=== PATIENT | female | born 1960 | race Two or more races ===

== ENCOUNTER 2024-04-22 11:16 | Inpatient (IN) | payer BC, OTHER ==
[2024-04-22] VITALS (8 sets, daily range): BP systolic 98–156; BP diastolic 62–99; PULSE 65–122; RESP 17–19; TEMP 97.9–98.7; O2SAT 2–100
[~2024-04-22] VITALS: Ht 167.6 cm; Wt 164.3 kg
[~2024-04-22 11:16] MED LIST: ALBU108A5 IN; CLON0.1T PO; HYDR25TA4 PO
[2024-04-22] MEDS: FUROSEMIDE 40 MG/4 ML VIAL IV ONE (11:45)
[2024-04-22 12:02] LABS: Basophils # (auto) 0.1 10 ^3/uL (0-0.2); Basophils % (auto) 0.6 % (0.0-2.0); Eosinophils # (auto) 0.1 10 ^3/uL (0-0.8); Eosinophils % (auto) 0.6 % (0.0-7.0); Hematocrit 48.4 % (36.0-46.0); Hemoglobin 16.3 g/dL (12.2-16.2); Lymphocytes # (auto) 1.4 10 ^3/uL (0.4-5.4); Lymphocytes % (auto) 16.9 % (10.0-50.0); Mean Corpuscular Hemoglobin 31.2 pg (28.0-32.0); Mean Corpuscular Hgb Conc. 33.7 g/dL (32.0-36.0); Mean Corpuscular Volume 92.6 fL (80.0-100.0); Monocytes # (auto) 0.7 10 ^3/uL (0-1.3); Monocytes % (auto) 8.2 % (0.0-12.0); Neutrophils # (auto) 6.2 10 ^3/uL (1.6-8.6); Neutrophils % (auto) 73.7 % (37.0-80.0); Platelet Count (auto) 202 10^3/uL (140-450); Red Blood Cells 5.22 10^6/uL (4.0-5.20); Red Cell Distribution Width 14.8 % (11.8-14.3); White Blood Cell 8.4 10^3/uL (4.4-10.8)
[2024-04-22 12:03] LABS: Chloride 98 mmol/L (98-107); Potassium 3.8 mmol/L (3.5-5.1); Sodium 132 mmol/L (136-145)
[2024-04-22 12:04] LABS: Anion Gap 13 (5-15); Carbon Dioxide 21 mmol/L (20-31)
[2024-04-22 12:05] LABS: Calcium 10.1 mg/dL (8.7-10.4)
[2024-04-22 12:10] LABS: BUN/Creatinine Ratio 10.4 (10.0-20.0); Blood Urea Nitrogen 15 mg/dL (9-23)
[2024-04-22 12:13] LABS: Glucose 474 mg/dL (74-106)
[2024-04-22 16:30] LABS: COVID19 ANTIGEN SOFIA FIA NEGATIVE (NEGATIVE)
[2024-04-22 16:31] LABS: Rapid Influenza A Negative (Negative); Rapid Influenza B Negative (Negative)
[2024-04-22] MEDS ORDERED: LISI-275 PO (16:44)
[2024-04-22] MEDS ORDERED: SIMV20TA20 PO (16:44)
[2024-04-22] MEDS ORDERED: METOPROLOL TARTRATE 25 MG TAB PO ONE (16:45)
[2024-04-22] MEDS ORDERED: ACETAMINOPHEN 325 MG TAB PO PRN (16:45)
[2024-04-22] MEDS ORDERED: MORPHINE SULFATE INJ 2 MG/ml SYRG IV PRN (16:45)
[2024-04-22] MEDS: SODIUM CHLORIDE 0.9% 1,000 ML IV SCH (16:45)
[2024-04-22] MEDS ORDERED: DEXTROSE (50%) 50ML SYRG IV PRN (16:45)
[2024-04-22] MEDS ORDERED: IPRATROPIUM BROM 0.5 MG/2.5ML INH SOL NEB PRN (16:45)
[2024-04-22] MEDS ORDERED: ALBUTEROL SULF 2.5 MG/0.5ML(0.5%) NEB SOLN NEB PRN (16:45)
[2024-04-22] MEDS ORDERED: HYDROcodone-ACET 5/325MG TAB PO PRN (16:45)
[2024-04-22 17:07] LABS: Urine Bacteria FEW /hpf (None Seen); Urine Blood Negative /uL (Negative); Urine Clarity Clear (Clear); Urine Color Light-Yellow (Yellow); Urine Protein, UAD Negative (Negative); Urine Specific Gravity 1.014 (1.001-1.035); Urine Urobilinogen Normal (Negative); Urine WBC 3 /hpf (0 - 5)
[2024-04-22 17:13] LABS: Triglycerides 230 mg/dL (< 150)
[2024-04-22 17:14] LABS: LDL Cholesterol 73 mg/dL (< 100)
[2024-04-22 17:15] LABS: Cholesterol 147 mg/dL (< 200); HDL Cholesterol 52 mg/dL (40-59)
[2024-04-22 17:19] LABS: Amphetamine Screen, Urine Neg (NEGATIVE); Barbiturate Scree,Urine Neg (NEGATIVE); Benzodiazephine Screen, Urine Neg (NEGATIVE); Cannabinoid Screen, Urine Neg (NEGATIVE); Cocaine Screen, Urine Neg (NEGATIVE); Opiate Scree,Urine Neg (NEGATIVE); Phencyclidine Screen, Urine Neg (NEGATIVE)
[2024-04-22] MEDS: amLODIPine BESYLATE 5 MG TAB PO ONE (17:45)
[2024-04-22] MEDS: ACCU-CHEK COMFORT CURVE STRIP VI SCH (17:54)
[2024-04-22] MEDS: IPRATROPIUM BROM 0.5 MG/2.5ML INH SOL NEB SCH (18:00)
[2024-04-22] MEDS: InsuLIN REG 1unit/0.01ml Soln (100units/ml) SC SCH (18:01)
[2024-04-22] MEDS: MAGNESIUM SULFATE 1GM/100ML 100 ML IV ONE (18:08)
[2024-04-22 18:26] LABS: Base Excess 0.7 mmol/L (-2.0-3.0)
[2024-04-22] MEDS: ALBUTEROL SULF 2.5 MG/0.5ML(0.5%) NEB SOLN NEB SCH (18:32)
[2024-04-22] MEDS ORDERED: ASPI81CH59 PO (20:31)
[2024-04-22] MEDS ORDERED: BACL20TA PO (20:31)
[2024-04-22] MEDS ORDERED: ATEN100T PO (20:31)
[2024-04-22] MEDS ORDERED: CHOL20007 PO (20:31)
[2024-04-22] MEDS ORDERED: INSU1.2I SC (20:32)
[2024-04-22] MEDS: ATORVASTATIN 20 MG TAB PO SCH (22:32)
[2024-04-22] MEDS: METOPROLOL TARTRATE 25 MG TAB PO SCH (22:44)
[2024-04-22] MEDS: ENOXAPARIN SOD 150 MG/1 ML SYRINGE SC SCH (22:47)
[2024-04-22] MEDS: INSULIN LANTUS (GLARGINE) 1 /0.01ml (100units/ml) SC SCH (23:00)
[2024-04-23] VITALS (16 sets, daily range): BP systolic 101–118; BP diastolic 42–76; PULSE 65–162; RESP 17–19; TEMP 97.8–98.4; O2SAT 93–100
[2024-04-23 07:20] LABS: Basophils # (auto) 0 10 ^3/uL (0-0.2); Basophils % (auto) 0.6 % (0.0-2.0); Eosinophils # (auto) 0.1 10 ^3/uL (0-0.8); Eosinophils % (auto) 1.1 % (0.0-7.0); Hematocrit 45.8 % (36.0-46.0); Hemoglobin 15.7 g/dL (12.2-16.2); Lymphocytes # (auto) 2.4 10 ^3/uL (0.4-5.4); Lymphocytes % (auto) 29.7 % (10.0-50.0); Mean Corpuscular Hemoglobin 31.8 pg (28.0-32.0); Mean Corpuscular Hgb Conc. 34.3 g/dL (32.0-36.0); Mean Corpuscular Volume 92.7 fL (80.0-100.0); Monocytes # (auto) 0.9 10 ^3/uL (0-1.3); Monocytes % (auto) 10.9 % (0.0-12.0); Neutrophils # (auto) 4.7 10 ^3/uL (1.6-8.6); Neutrophils % (auto) 57.7 % (37.0-80.0); Nucleated Red Blood Cells % 0.1 %; Platelet Count (auto) 218 10^3/uL (140-450); Red Blood Cells 4.94 10^6/uL (4.0-5.20); Red Cell Distribution Width 14.6 % (11.8-14.3); White Blood Cell 8.2 10^3/uL (4.4-10.8)
[2024-04-23 07:30] LABS: Alanine Aminotransferase 34 U/L (7-40); Alkaline Phosphatase 64 U/L (46-116); Anion Gap 12 (5-15); Carbon Dioxide 25 mmol/L (20-31); Chloride 99 mmol/L (98-107); Glucose 329 mg/dL (74-106); Potassium 3.3 mmol/L (3.5-5.1); Sodium 136 mmol/L (136-145)
[2024-04-23 07:31] LABS: Aspartate Aminotransferase 25 U/L (13-40); BUN/Creatinine Ratio 11.4 (10.0-20.0); Blood Urea Nitrogen 16 mg/dL (9-23)
[2024-04-23 07:32] LABS: Albumin 4.3 g/dL (3.2-4.8)
[2024-04-23 07:33] LABS: Bilirubin, Total 0.5 mg/dL (0.2-1.0); Total Protein 7.1 g/dL (5.7-8.2)
[2024-04-23] MEDS: amLODIPine BESYLATE 5 MG TAB PO SCH (08:25)
[2024-04-23] MEDS ORDERED: DEXTROSE (50%) 50ML SYRG IV PRN (08:45)
[2024-04-23] MEDS ORDERED: POTASSIUM CHL 20MEQ/100ML 100 ML IV SCH (09:00)
[2024-04-23] MEDS: METOPROLOL TARTRATE 1MG/1ML-5ML VIAL IV ONE (10:38)
[2024-04-23] MEDS: LEVALBUTEROL HCL 1.25 MG/3 ML NEB NEB SCH (12:00)
[2024-04-23] MEDS: VERAPAMIL HCL 120 mg ER tab PO ONE (12:06)
[2024-04-23] MEDS: ACCU-CHEK COMFORT CURVE STRIP VI SCH (12:07)
[2024-04-23] MEDS: MAGNESIUM SULFATE 1GM/100ML 100 ML IV ONE (12:07)
[2024-04-23] MEDS: InsuLIN REG 1unit/0.01ml Soln (100units/ml) SC SCH (13:41)
[2024-04-23] MEDS ORDERED: LEVALBUTEROL HCL 1.25 MG/3 ML NEB NEB SCH (14:00)
[2024-04-23] MEDS: POTASSIUM CHLORIDE 40 MEQ, LIDOCAINE 1% (LOCAL ANESTH.) 4 ML in SODIUM CHL 0.9% 250 ML IV ONE (14:23)
[2024-04-23] MEDS: InsuLIN REG 1unit/0.01ml Soln (100units/ml) SC ONE (14:55)
[2024-04-23] MEDS: ATORVASTATIN 20 MG TAB PO SCH (21:12)
[2024-04-23] MEDS ORDERED: ATORVASTATIN 20 MG TAB PO SCH (22:00)
[2024-04-24] VITALS (10 sets, daily range): BP systolic 100–128; BP diastolic 50–76; PULSE 105–155; RESP 16–22; TEMP 98–99; O2SAT 94–99
[2024-04-24 06:35] LABS: Basophils # (auto) 0 10 ^3/uL (0-0.2); Basophils % (auto) 0.6 % (0.0-2.0); Eosinophils # (auto) 0.2 10 ^3/uL (0-0.8); Eosinophils % (auto) 2.3 % (0.0-7.0); Hematocrit 48.2 % (36.0-46.0); Hemoglobin 16.5 g/dL (12.2-16.2); Lymphocytes # (auto) 2.3 10 ^3/uL (0.4-5.4); Lymphocytes % (auto) 31.2 % (10.0-50.0); Mean Corpuscular Hemoglobin 31.8 pg (28.0-32.0); Mean Corpuscular Hgb Conc. 34.4 g/dL (32.0-36.0); Mean Corpuscular Volume 92.6 fL (80.0-100.0); Monocytes # (auto) 0.6 10 ^3/uL (0-1.3); Monocytes % (auto) 8.2 % (0.0-12.0); Neutrophils # (auto) 4.2 10 ^3/uL (1.6-8.6); Neutrophils % (auto) 57.7 % (37.0-80.0); Nucleated Red Blood Cells % 0.1 %; Platelet Count (auto) 217 10^3/uL (140-450); Red Cell Distribution Width 14.5 % (11.8-14.3); White Blood Cell 7.3 10^3/uL (4.4-10.8)
[2024-04-24] MEDS: AMIODARONE BOLUS KIT 100 ML IV ONE ×2 (06:40→06:41)
[2024-04-24] MEDS: AMIODARONE 450mg/250ml AE 250 ML IV ONE (06:42)
[2024-04-24 06:43] LABS: Alanine Aminotransferase 34 U/L (7-40); Albumin 4.6 g/dL (3.2-4.8); Alkaline Phosphatase 65 U/L (46-116); Anion Gap 11 (5-15); Aspartate Aminotransferase 26 U/L (13-40); BUN/Creatinine Ratio 12.7 (10.0-20.0); Blood Urea Nitrogen 16 mg/dL (9-23); Calcium 10.5 mg/dL (8.7-10.4); Carbon Dioxide 24 mmol/L (20-31); Chloride 102 mmol/L (98-107); Glucose 199 mg/dL (74-106); Magnesium 2.3 mg/dL (1.6-2.6); Potassium 3.6 mmol/L (3.5-5.1); Sodium 137 mmol/L (136-145)
[2024-04-24 06:44] LABS: Bilirubin, Total 0.7 mg/dL (0.2-1.0); Total Protein 7.4 g/dL (5.7-8.2)
[2024-04-24] MEDS: AMIODARONE 450mg/250ml AE 250 ML IV SCH (06:58)
[2024-04-24] MEDS: METOPROLOL TARTRATE 1MG/1ML-5ML VIAL IV ONE ×3 (07:30→18:38)
[2024-04-24] MEDS ORDERED: POTASSIUM CHL 20 Meq TABLET PO ONE (07:30)
[2024-04-24] MEDS: POTASSIUM CHL 20 Meq TABLET PO ONE (08:03)
[2024-04-24] MEDS: METOPROLOL TARTRATE 25 MG TAB PO SCH (09:27)
[2024-04-24] MEDS: FUROSEMIDE 40 MG/4 ML VIAL IV ONE (09:28)
[2024-04-24] MEDS ORDERED: VERAPAMIL HCL 120 mg ER tab PO SCH (10:00)
[2024-04-24] MEDS: DIGOXIN (250MCG/ML) 2 ML AMPULE IV ONE (11:10)
[2024-04-24] MEDS: FUROSEMIDE INJECTION 100 MG in D5W 5% 100 ML IV SCH (13:30)
[2024-04-24 14:19] LABS: Protein, Urine < 6.0 mg/dL (1-14)
[2024-04-24 14:21] LABS: Creatinine, Urine 25.71 mg/dL (30.0-125.0)
[2024-04-24] MEDS ORDERED: FUROSEMIDE 40 MG/4 ML VIAL IV SCH (18:00)
[2024-04-24 20:02] LABS: Potassium 3.8 mmol/L (3.5-5.1)
[2024-04-24] MEDS: METOPROLOL SUCCINATE XL 50 MG TAB PO SCH (20:56)
[2024-04-25] VITALS (14 sets, daily range): BP systolic 103–119; BP diastolic 44–88; PULSE 74–169; RESP 16–20; TEMP 97.8–98.9; O2SAT 93–98
[2024-04-25 06:23] LABS: Basophils # (auto) 0 10 ^3/uL (0-0.2); Basophils % (auto) 0.7 % (0.0-2.0); Eosinophils # (auto) 0.2 10 ^3/uL (0-0.8); Eosinophils % (auto) 2.1 % (0.0-7.0); Hematocrit 45.9 % (36.0-46.0); Hemoglobin 15.9 g/dL (12.2-16.2); Lymphocytes # (auto) 2.1 10 ^3/uL (0.4-5.4); Lymphocytes % (auto) 28.5 % (10.0-50.0); Mean Corpuscular Hemoglobin 31.7 pg (28.0-32.0); Mean Corpuscular Hgb Conc. 34.5 g/dL (32.0-36.0); Mean Corpuscular Volume 91.7 fL (80.0-100.0); Monocytes # (auto) 0.6 10 ^3/uL (0-1.3); Monocytes % (auto) 8.1 % (0.0-12.0); Neutrophils # (auto) 4.4 10 ^3/uL (1.6-8.6); Neutrophils % (auto) 60.6 % (37.0-80.0); Nucleated Red Blood Cells % 0.1 %; Platelet Count (auto) 198 10^3/uL (140-450); Red Blood Cells 5.01 10^6/uL (4.0-5.20); Red Cell Distribution Width 14.5 % (11.8-14.3); White Blood Cell 7.3 10^3/uL (4.4-10.8)
[2024-04-25 06:30] LABS: Alanine Aminotransferase 28 U/L (7-40); Albumin 4.1 g/dL (3.2-4.8); Alkaline Phosphatase 58 U/L (46-116); Anion Gap 10 (5-15); Aspartate Aminotransferase 22 U/L (13-40); BUN/Creatinine Ratio 10.8 (10.0-20.0); Bilirubin, Total 0.7 mg/dL (0.2-1.0); Blood Urea Nitrogen 14 mg/dL (9-23); Calcium 9.9 mg/dL (8.7-10.4); Carbon Dioxide 25 mmol/L (20-31); Chloride 103 mmol/L (98-107); Glucose 193 mg/dL (74-106); Magnesium 1.9 mg/dL (1.6-2.6); Potassium 3.3 mmol/L (3.5-5.1); Sodium 138 mmol/L (136-145); Total Protein 6.7 g/dL (5.7-8.2)
[2024-04-25] MEDS: DIGOXIN 0.125 MG TAB PO SCH (08:12)
[2024-04-25] MEDS: POTASSIUM CHL 20MEQ/100ML 100 ML IV SCH (08:13)
[2024-04-25] MEDS: POTASSIUM EFFERVESENT TAB 25 MEQ PO ONE (11:39)
[2024-04-25] MEDS: MAGNESIUM OXIDE 400 MG TAB PO ONE (11:39)
[2024-04-25] MEDS: METOPROLOL TARTRATE 1MG/1ML-5ML VIAL IV ONE (11:40)
[2024-04-25] MEDS: METOPROLOL SUCCINATE XL 50 MG TAB PO ONE (15:27)
[2024-04-25] MEDS: FUROSEMIDE INJECTION 100 MG in D5W 5% 100 ML IV SCH (15:29)
[2024-04-25] MEDS: AMIODARONE HCL 200 MG TAB PO SCH (18:51)
[2024-04-25] MEDS: METOPROLOL SUCCINATE XL 50 MG TAB PO SCH (21:26)
[2024-04-26] VITALS (16 sets, daily range): BP systolic 106–138; BP diastolic 57–86; PULSE 76–136; RESP 18–24; TEMP 97.8–98.1; O2SAT 94–98
[2024-04-26 06:10] LABS: Basophils # (auto) 0.1 10 ^3/uL (0-0.2); Basophils % (auto) 0.6 % (0.0-2.0); Eosinophils # (auto) 0.2 10 ^3/uL (0-0.8); Eosinophils % (auto) 1.8 % (0.0-7.0); Hematocrit 44.6 % (36.0-46.0); Hemoglobin 15.5 g/dL (12.2-16.2); Lymphocytes # (auto) 2.4 10 ^3/uL (0.4-5.4); Lymphocytes % (auto) 25.6 % (10.0-50.0); Mean Corpuscular Hemoglobin 32.1 pg (28.0-32.0); Mean Corpuscular Hgb Conc. 34.8 g/dL (32.0-36.0); Mean Corpuscular Volume 92.3 fL (80.0-100.0); Monocytes # (auto) 0.8 10 ^3/uL (0-1.3); Monocytes % (auto) 8.6 % (0.0-12.0); Neutrophils # (auto) 5.9 10 ^3/uL (1.6-8.6); Neutrophils % (auto) 63.4 % (37.0-80.0); Nucleated Red Blood Cells % 0.1 %; Platelet Count (auto) 206 10^3/uL (140-450); Red Blood Cells 4.83 10^6/uL (4.0-5.20); Red Cell Distribution Width 14.5 % (11.8-14.3); White Blood Cell 9.4 10^3/uL (4.4-10.8)
[2024-04-26 06:27] LABS: Alanine Aminotransferase 27 U/L (7-40); Albumin 4.3 g/dL (3.2-4.8); Alkaline Phosphatase 55 U/L (46-116); Anion Gap 11 (5-15); Aspartate Aminotransferase 19 U/L (13-40); BUN/Creatinine Ratio 9.9 (10.0-20.0); Bilirubin, Total 0.8 mg/dL (0.2-1.0); Blood Urea Nitrogen 13 mg/dL (9-23); Calcium 9.9 mg/dL (8.7-10.4); Carbon Dioxide 25 mmol/L (20-31); Chloride 102 mmol/L (98-107); Glucose 197 mg/dL (74-106); Potassium 3.1 mmol/L (3.5-5.1); Sodium 138 mmol/L (136-145); Total Protein 6.9 g/dL (5.7-8.2)
[2024-04-26] MEDS: POTASSIUM EFFERVESENT TAB 25 MEQ GT ONE (08:45)
[2024-04-26] MEDS: MAGNESIUM OXIDE 400 MG TAB PO SCH (09:11)
[2024-04-26] MEDS: POTASSIUM CHL 20 Meq TABLET PO SCH (09:11)
[2024-04-26] MEDS ORDERED: SODIUM CHLORIDE 0.9% 1,800 ML IV ONE (12:30)
[2024-04-26] MEDS: MAGNESIUM OXIDE 400 MG TAB PO ONE (13:20)
[2024-04-26] MEDS: INSULIN LANTUS (GLARGINE) 1 /0.01ml (100units/ml) SC ONE (13:25)
[2024-04-26] MEDS: APIXABAN 5 MG TAB PO SCH (21:56)
[2024-04-26] MEDS: INSULIN LANTUS (GLARGINE) 1 /0.01ml (100units/ml) SC SCH (22:13)
[2024-04-27] VITALS (12 sets, daily range): BP systolic 116–159; BP diastolic 70–95; PULSE 62–126; RESP 18–88; TEMP 97.7–98.2; O2SAT 93–100
[2024-04-27] MEDS: METOPROLOL TARTRATE 1MG/1ML-5ML VIAL IV ONE (09:28)
[2024-04-27] MEDS: METOPROLOL SUCCINATE XL 50 MG TAB PO SCH (09:28)
[2024-04-27] MEDS: MAGNESIUM OXIDE 400 MG TAB PO SCH (09:29)
[2024-04-27] MEDS: DIGOXIN 0.125 MG TAB PO SCH (09:29)
[2024-04-27] MEDS ORDERED: INSULIN LANTUS (GLARGINE) 1 /0.01ml (100units/ml) SC SCH (10:00)
[2024-04-27 12:13] LABS: Basophils # (auto) 0.1 10 ^3/uL (0-0.2); Basophils % (auto) 1.1 % (0.0-2.0); Eosinophils # (auto) 0.2 10 ^3/uL (0-0.8); Eosinophils % (auto) 1.8 % (0.0-7.0); Hematocrit 47.5 % (36.0-46.0); Hemoglobin 16.4 g/dL (12.2-16.2); Lymphocytes # (auto) 2.3 10 ^3/uL (0.4-5.4); Lymphocytes % (auto) 22.9 % (10.0-50.0); Mean Corpuscular Hemoglobin 32.1 pg (28.0-32.0); Mean Corpuscular Hgb Conc. 34.5 g/dL (32.0-36.0); Monocytes # (auto) 0.7 10 ^3/uL (0-1.3); Monocytes % (auto) 7.4 % (0.0-12.0); Neutrophils # (auto) 6.7 10 ^3/uL (1.6-8.6); Neutrophils % (auto) 66.8 % (37.0-80.0); Nucleated Red Blood Cells % 0.1 %; Platelet Count (auto) 249 10^3/uL (140-450); Red Cell Distribution Width 14.5 % (11.8-14.3)
[2024-04-27 12:18] LABS: Alanine Aminotransferase 36 U/L (7-40); Albumin 4.5 g/dL (3.2-4.8); Alkaline Phosphatase 61 U/L (46-116); Anion Gap 8 (5-15); Aspartate Aminotransferase 28 U/L (13-40); BUN/Creatinine Ratio 10.3 (10.0-20.0); Bilirubin, Total 0.7 mg/dL (0.2-1.0); Blood Urea Nitrogen 15 mg/dL (9-23); Carbon Dioxide 27 mmol/L (20-31); Chloride 101 mmol/L (98-107); Glucose 252 mg/dL (74-106); Potassium 3.9 mmol/L (3.5-5.1); Sodium 136 mmol/L (136-145); Total Protein 7.4 g/dL (5.7-8.2)
[2024-04-27] MEDS: INSULIN LANTUS (GLARGINE) 1 /0.01ml (100units/ml) SC SCH (13:06)
[2024-04-27] MEDS: FUROSEMIDE 40 MG TAB PO SCH (18:27)
[2024-04-28] VITALS (13 sets, daily range): BP systolic 91–113; BP diastolic 50–85; PULSE 59–111; RESP 17–21; TEMP 36.7; O2SAT 92–97
[2024-04-28] MEDS ORDERED: DIGO1TAB48 PO (12:04)
[2024-04-28] MEDS ORDERED: FURO40TA4 PO (12:04)
[2024-04-28] MEDS ORDERED: ATOR40TA52 PO (12:04)
[2024-04-28] MEDS ORDERED: METO-6 PO (12:04)
[2024-04-28] MEDS ORDERED: POTA-220 PO (12:04)
[2024-04-28] MEDS ORDERED: APIX5TAB PO (12:04)
[2024-04-28] MEDS ORDERED: INSUINJ37 SC (12:05)
[2024-04-28] MEDS ORDERED: INSU50IN6 SC (12:07)
[2024-04-28] MEDS ORDERED: INSU32MI9 XX (12:08)
== END 2024-04-28 16:56 | disposition home or self-care (01) | DRG 291 ==
LOC: ER 11:16 → EDBD 11:16 → TELE 16:44 → TELE-WESTW 19:17
PROVIDERS: ADMIT Internal Medicine; ATTEND Student in an Organized Health Care Education/Training Program
PROC: 5A09357 Assistance with Respiratory Ventilation, Less than 24 Consecutive Hours, Continuous Positive Airway Pressure (ICD-10-PCS; principal; 2024-04-23)
DX: I13.0 Hypertensive heart and chronic kidney disease with heart failure and stage 1 through stage 4 chronic kidney disease, or unspecified chronic kidney disease (principal); I50.33 Acute on chronic diastolic (congestive) heart failure; J96.21 Acute and chronic respiratory failure with hypoxia; N17.9 Acute kidney failure, unspecified; D68.59 Other primary thrombophilia; D84.9 Immunodeficiency, unspecified; Z68.42 Body mass index [BMI] 45.0-49.9, adult; I48.0 Paroxysmal atrial fibrillation; E11.65 Type 2 diabetes mellitus with hyperglycemia; E66.01 Morbid (severe) obesity due to excess calories; E11.22 Type 2 diabetes mellitus with diabetic chronic kidney disease; J44.9 Chronic obstructive pulmonary disease, unspecified; N18.9 Chronic kidney disease, unspecified; I35.8 Other nonrheumatic aortic valve disorders; E87.6 Hypokalemia; E78.1 Pure hyperglyceridemia; E83.42 Hypomagnesemia; Z79.01 Long term (current) use of anticoagulants; Z79.899 Other long term (current) drug therapy; Z79.4 Long term (current) use of insulin; Z88.0 Allergy status to penicillin; Z90.711 Acquired absence of uterus with remaining cervical stump; Z86.711 Personal history of pulmonary embolism; Z87.891 Personal history of nicotine dependence
CPT/HCPCS: 36415; 36600; 71045; 76775; 80048; 80053; 80061; 80162; 80307; 81001; 82570; 82805; 82962; 83036; 83735; 83880; 83935; 84132; 84133; 84156; 84443; 84484; 85025; 85379; 87081; 87426; 87804; 93005; 93306; 93970; 94640; 94660; 99291; G0378; J1815; J2001; J3480; J7060

== ENCOUNTER → 2024-10-19 | Outpatient (CLI) | payer MEDICAID ==
[~2024-10-19] MED LIST changes: +APIX5TAB PO; +ATOR40TA52 PO; +BACL20TA PO; +CHOL20007 PO; -CLON0.1T PO; +DIGO1TAB48 PO; +FURO40TA4 PO; -HYDR25TA4 PO; +INSU32MI9 XX; +INSU50IN6 SC; +INSUINJ37 SC; +METO-6 PO; +POTA-220 PO
[2024-10-19 11:01] LABS: Basophils # (auto) 0.1 10 ^3/uL (0-0.2); Basophils % (auto) 0.9 % (0.0-2.0); Eosinophils # (auto) 0.2 10 ^3/uL (0-0.8); Eosinophils % (auto) 1.6 % (0.0-7.0); Hematocrit 42.3 % (36.0-46.0); Hemoglobin 14.3 g/dL (12.2-16.2); Lymphocytes # (auto) 1.7 10 ^3/uL (0.4-5.4); Lymphocytes % (auto) 15.9 % (10.0-50.0); Mean Corpuscular Hemoglobin 30.2 pg (28.0-32.0); Mean Corpuscular Hgb Conc. 33.8 g/dL (32.0-36.0); Mean Corpuscular Volume 89.4 fL (80.0-100.0); Monocytes # (auto) 0.6 10 ^3/uL (0-1.3); Monocytes % (auto) 5.7 % (0.0-12.0); Neutrophils # (auto) 8.2 10 ^3/uL (1.6-8.6); Neutrophils % (auto) 75.9 % (37.0-80.0); Platelet Count (auto) 259 10^3/uL (140-450); Red Blood Cells 4.74 10^6/uL (4.0-5.20); White Blood Cell 10.8 10^3/uL (4.4-10.8)
[2024-10-19 11:48] LABS: Alanine Aminotransferase 19 U/L (7-40); Albumin 4.8 g/dL (3.2-4.8); Alkaline Phosphatase 62 U/L (46-116); Anion Gap 7 (5-15); Aspartate Aminotransferase 16 U/L (13-40); BUN/Creatinine Ratio 12.6 (10.0-20.0); Blood Urea Nitrogen 16 mg/dL (9-23); Carbon Dioxide 27 mmol/L (20-31); Chloride 103 mmol/L (98-107); Sodium 137 mmol/L (136-145); Total Protein 7.8 g/dL (5.7-8.2); Uric Acid 7.4 mg/dL (3.1-7.8)
[2024-10-19 11:49] LABS: Bilirubin, Total 0.5 mg/dL (0.2-1.0); Calcium 10.4 mg/dL (8.7-10.4); Glucose 160 mg/dL (74-106)
== END | disposition home or self-care (01) ==
LOC: LAB 09:50
PROVIDERS: ATTEND Internal Medicine
DX: I11.0 Hypertensive heart disease with heart failure (principal); E11.22 Type 2 diabetes mellitus with diabetic chronic kidney disease; E11.65 Type 2 diabetes mellitus with hyperglycemia; N18.32 Chronic kidney disease, stage 3b
CPT/HCPCS: 36415; 80053; 80162; 83970; 84550; 85025

== ENCOUNTER → 2025-04-03 | Outpatient (CLI) | payer MEDICAID | END | disposition home or self-care (01) | LOC: LAB 12:24 | PROVIDERS: ATTEND Internal Medicine | DX: Z13.811 Encounter for screening for lower gastrointestinal disorder (principal) | CPT/HCPCS: 82270 ==